=== PATIENT | female | born 1940 | race Caucasian/White ===

== ENCOUNTER 2017-11-20 06:12 | Emergency (ER) | payer MEDICARE, OTHER ==
[~2017-11-20] VITALS: Ht 160 cm; Wt 69.0 kg
[~2017-11-20 06:12] MED LIST: LATA.005SO BOTHEYES; Norco 5-325 Ta1 EACH PO; OMEP20ER PO
[2017-11-20] MEDS ORDERED: ASPI81CH PO (06:25)
[2017-11-20] MEDS ORDERED: DEXL60CA3 PO (06:25)
[2017-11-20] MEDS ORDERED: Prednisone20 MG PO (06:36)
[2017-11-20] MEDS ORDERED: Pseudoephedrine30 MG PO (06:36)
[2017-11-20] MEDS ORDERED: PROMETH-CODEIN 65 ML PO (06:36)
== END 2017-11-20 06:45 | disposition home or self-care (01) ==
LOC: ER 06:12
DX: J20.9 Acute bronchitis, unspecified (principal); Z85.3 Personal history of malignant neoplasm of breast; Z88.2 Allergy status to sulfonamides; Z88.7 Allergy status to serum and vaccine; Z79.82 Long term (current) use of aspirin; Z79.899 Other long term (current) drug therapy
CPT/HCPCS: 99283

== ENCOUNTER 2020-01-23 12:13 | Emergency (ER) | payer MEDICARE, OTHER ==
[~2020-01-23] VITALS: Ht 160 cm; Wt 70.3 kg
[~2020-01-23 12:13] MED LIST changes: +ANAS1 PO; +ASPI81CH PO; +DEXL60CA3 PO; +PROMETH-CODEIN 65 ML PO; +Prednisone20 MG PO; +Pseudoephedrine30 MG PO; +Robaxin500 MG PO
[2020-01-23 13:45] LABS: BASOPHILS ABSOLUTE AUTO 0.03 K/mm3 (0.00-0.23); BASOPHILS PERCENT AUTO 1 % (0-2); EOSINOPHILS ABSOLUTE AUTO 0.18 K/mm3 (0.00-0.68); EOSINOPHILS PERCENT AUTO 3 % (0-6); Hematocrit 48.3 % (33.0-51.0); Hemoglobin 15.5 g/dL (11.5-16.0); IMMATURE GRAN ABSOLUTE AUTO 0.01 K/mm3 (0.00-0.10); IMMATURE GRAN PERCENT AUTO 0 % (0-1); LYMPHOCYTES ABSOLUTE AUTO 1.83 K/mm3 (0.84-5.20); LYMPHOCYTES PERCENT AUTO 33 % (21-46); MONOCYTES ABSOLUTE AUTO 0.65 K/mm3 (0.16-1.47); MONOCYTES PERCENT AUTO 12 % (4-13); Mean Corpuscular HGB 29.1 pg (26.0-34.0); Mean Corpuscular HGB Conc 32.1 g/dL (31.5-36.5); Mean Corpuscular Volume 91 fL (80-100); Mean Platelet Volume 9.6 fL (9.1-12.4); NEUTROPHILS ABSOLUTE AUTO 2.87 K/mm3 (1.96-9.15); NEUTROPHILS PERCENT AUTO 52 % (41-73); Platelet Count 257 K/mm3 (150-400); RDW Coefficient Variation 12.4 % (11.7-14.2); RDW Standard Deviation 41.2 fL (35.1-46.3); Red Blood Cell Count 5.33 M/mm3 (3.80-5.20); White Blood Cell Count 5.57 K/mm3 (4.00-11.30)
[2020-01-23 14:00] LABS: International Normalized Ratio 1.04; Prothrombin Time Results 11.1 Sec (9.7-11.5)
[2020-01-23 14:16] LABS: Alanine Aminotransfer (ALT/SGP 19 U/L (12-78); Alk Phos 87 U/L (50-136); Anion Gap 6 mmol/L (6-16); Aspartate Aminotrans (AST/SGOT 15 U/L (12-37); Bilirubin, Total 0.8 mg/dL (0.1-1.0); Blood Urea Nitrogen 17 mg/dL (8-24); Bun/Creatinine Ratio 23.2 (12.0-20.0); CO2, Blood 29 mmol/L (21-32); Calcium, Blood 9.4 mg/dL (8.5-10.1); Chloride, Blood 105 mmol/L (98-108); Creatinine, Blood 0.73 mg/dL (0.40-1.00); Globulin, Blood 4.2 g/dL (2.2-4.0); Glomerular Filtration Rate >60 (60-); Glucose, Blood 87 mg/dL (70-99); Potassium, Blood 3.9 mmol/L (3.5-5.5); Sodium, Blood 140 mmol/L (136-145); Total Protein, Blood 8.2 g/dL (6.4-8.2); Troponin I <0.015 ng/mL (0.000-0.040)
[2020-01-23] MEDS ORDERED: DEXA4 PO (14:23)
== END 2020-01-23 16:36 | disposition home or self-care (01) ==
LOC: ER 12:13
PROVIDERS: Physician Assistant
DX: G93.89 Other specified disorders of brain (principal); H40.9 Unspecified glaucoma; Z85.3 Personal history of malignant neoplasm of breast; Z88.2 Allergy status to sulfonamides; Z88.7 Allergy status to serum and vaccine; Z79.899 Other long term (current) drug therapy
CPT/HCPCS: 36415; 70450; 71260; 80053; 83880; 84484; 85025; 85379; 85610; 93005; 93010; 99285-25; J1100; Q9967

== ENCOUNTER 2020-02-19 07:14 | Emergency (ER) | payer MEDICARE, OTHER ==
[~2020-02-19] VITALS: Ht 160 cm; Wt 63.5 kg
[~2020-02-19 07:14] MED LIST changes: +DEXA4 PO
[2020-02-19 07:56] LABS: BASOPHILS ABSOLUTE AUTO 0.02 K/mm3 (0.00-0.23); BASOPHILS PERCENT AUTO 0 % (0-2); EOSINOPHILS PERCENT AUTO 0 % (0-6); Hematocrit 36.8 % (33.0-51.0); Hemoglobin 12.3 g/dL (11.5-16.0); IMMATURE GRAN ABSOLUTE AUTO 0.26 K/mm3 (0.00-0.10); IMMATURE GRAN PERCENT AUTO 2 % (0-1); LYMPHOCYTES ABSOLUTE AUTO 0.85 K/mm3 (0.84-5.20); LYMPHOCYTES PERCENT AUTO 8 % (21-46); MONOCYTES ABSOLUTE AUTO 1.04 K/mm3 (0.16-1.47); MONOCYTES PERCENT AUTO 9 % (4-13); Mean Corpuscular HGB 30.1 pg (26.0-34.0); Mean Corpuscular HGB Conc 33.4 g/dL (31.5-36.5); Mean Corpuscular Volume 90 fL (80-100); Mean Platelet Volume 9.9 fL (9.1-12.4); NEUTROPHILS PERCENT AUTO 81 % (41-73); Platelet Count 171 K/mm3 (150-400); RDW Standard Deviation 42.7 fL (35.1-46.3); Red Blood Cell Count 4.09 M/mm3 (3.80-5.20); White Blood Cell Count 11.17 K/mm3 (4.00-11.30)
[2020-02-19 08:10] LABS: Alanine Aminotransfer (ALT/SGP 25 U/L (12-78); Albumin, Blood 2.4 g/dL (3.4-5.0); Albumin/Globulin Ratio 0.8 (0.8-1.8); Alk Phos 43 U/L (50-136); Anion Gap 7 mmol/L (6-16); Aspartate Aminotrans (AST/SGOT 11 U/L (12-37); Bilirubin, Total 0.4 mg/dL (0.1-1.0); Blood Urea Nitrogen 63 mg/dL (8-24); Bun/Creatinine Ratio 103.3 (12.0-20.0); CO2, Blood 26 mmol/L (21-32); Calcium, Blood 7.8 mg/dL (8.5-10.1); Chloride, Blood 104 mmol/L (98-108); Creatinine, Blood 0.61 mg/dL (0.40-1.00); Globulin, Blood 3.2 g/dL (2.2-4.0); Glomerular Filtration Rate >60 (60-); Glucose, Blood 182 mg/dL (70-99); Potassium, Blood 4.1 mmol/L (3.5-5.5); Sodium, Blood 137 mmol/L (136-145); Total Protein, Blood 5.6 g/dL (6.4-8.2); Troponin I <0.015 ng/mL (0.000-0.040)
[2020-02-19 09:49] LABS: Source, Urine Clean Catch
[2020-02-19 10:02] LABS: Bilirubin, Urine Neg (Neg); Blood, Urine 5+ (Neg); Glucose Qualitative, Urine 1+ (Neg); Ketones, Urine 1+ (Neg); Leukocyte Esterase, Urine 3+ (Neg); Nitrite, Urine Neg (Neg); Protein, Urine Neg (Neg); Urobilinogen, Urine NORM (Normal)
[2020-02-19 10:13] LABS: Appearance, Urine Clear (Clear); Color, Urine Yellow (P-Yellow)
[2020-02-19 10:16] LABS: Calcium Oxalate Crystals Rare /hpf; Granular Casts 0-2 /lpf (0); Mucus Light (0-Heavy); Squamous Epithelial Cells Few /hpf (Few)
[2020-02-19 10:17] LABS: Bacteria Mod /hpf
[2020-02-19] MEDS ORDERED: CEPH500 PO (12:20)
== END 2020-02-19 13:24 | disposition home or self-care (01) ==
LOC: ER 07:14
PROVIDERS: Emergency Medicine
DX: N39.0 Urinary tract infection, site not specified (principal); E86.0 Dehydration; C71.9 Malignant neoplasm of brain, unspecified; Z85.3 Personal history of malignant neoplasm of breast; Z88.2 Allergy status to sulfonamides; Z88.7 Allergy status to serum and vaccine; Z79.899 Other long term (current) drug therapy
CPT/HCPCS: 80053; 81001; 84484; 85025; 87077; 87086; 87186; 93005; 93010; 96361; 96365; 99284-25; J0696; J7120

== ENCOUNTER 2020-03-06 12:21 | Inpatient (IN) | payer MEDICARE, OTHER ==
[~2020-03-06] VITALS: Ht 160 cm; Wt 61.2 kg
[~2020-03-06 12:21] MED LIST changes: +CEPH500 PO
[2020-03-06] MEDS ORDERED: DEXA4 PO (12:55)
[2020-03-06] MEDS ORDERED: LATA.005SO BOTHEYES (12:55)
[2020-03-06] MEDS ORDERED: Aspirin EC81 MG PO (12:56)
[2020-03-06] MEDS ORDERED: ANASTROZOLE5 GM MC (12:56)
[2020-03-06] MEDS ORDERED: CALCIUM600 MG PO (12:57)
[2020-03-06] MEDS ORDERED: DICL25ER PO (12:58)
[2020-03-06] MEDS ORDERED: [UNRECOGNIZED DRUG - OTHER] PO (12:58)
[2020-03-06] MEDS ORDERED: ANAS1 PO (12:59)
[2020-03-06 13:04] LABS: BASOPHILS ABSOLUTE AUTO 0.01 K/mm3 (0.00-0.23); BASOPHILS PERCENT AUTO 0 % (0-2); EOSINOPHILS PERCENT AUTO 0 % (0-6); Hematocrit 29.6 % (33.0-51.0); Hemoglobin 9.4 g/dL (11.5-16.0); IMMATURE GRAN ABSOLUTE AUTO 0.13 K/mm3 (0.00-0.10); IMMATURE GRAN PERCENT AUTO 2 % (0-1); LYMPHOCYTES ABSOLUTE AUTO 0.55 K/mm3 (0.84-5.20); LYMPHOCYTES PERCENT AUTO 8 % (21-46); MONOCYTES ABSOLUTE AUTO 0.42 K/mm3 (0.16-1.47); MONOCYTES PERCENT AUTO 6 % (4-13); Mean Corpuscular HGB 31.1 pg (26.0-34.0); Mean Corpuscular HGB Conc 31.8 g/dL (31.5-36.5); Mean Corpuscular Volume 98 fL (80-100); Mean Platelet Volume 10.1 fL (9.1-12.4); NEUTROPHILS ABSOLUTE AUTO 5.69 K/mm3 (1.96-9.15); NEUTROPHILS PERCENT AUTO 84 % (41-73); NRBC ABSOLUTE 0.05 K/mm3 (0.00-0.02); NRBC Auto 0.7 /100 WBC (0.0-0.2); Platelet Count 75 K/mm3 (150-400); RDW Coefficient Variation 17.7 % (11.7-14.2); RDW Standard Deviation 62.1 fL (35.1-46.3); Red Blood Cell Count 3.02 M/mm3 (3.80-5.20)
[2020-03-06 13:15] LABS: Alanine Aminotransfer (ALT/SGP 30 U/L (12-78); Albumin, Blood 2.1 g/dL (3.4-5.0); Albumin/Globulin Ratio 0.8 (0.8-1.8); Alk Phos 49 U/L (50-136); Anion Gap 5 mmol/L (6-16); Aspartate Aminotrans (AST/SGOT 12 U/L (12-37); Bilirubin, Total 1.1 mg/dL (0.1-1.0); Blood Urea Nitrogen 30 mg/dL (8-24); Bun/Creatinine Ratio 53.6 (12.0-20.0); CO2, Blood 27 mmol/L (21-32); Calcium, Blood 7.4 mg/dL (8.5-10.1); Chloride, Blood 109 mmol/L (98-108); Creatinine, Blood 0.56 mg/dL (0.40-1.00); Globulin, Blood 2.6 g/dL (2.2-4.0); Glomerular Filtration Rate >60 (60-); Glucose, Blood 199 mg/dL (70-99); Potassium, Blood 3.5 mmol/L (3.5-5.5); Sodium, Blood 141 mmol/L (136-145); Total Protein, Blood 4.7 g/dL (6.4-8.2)
[2020-03-06 17:59] LABS: International Normalized Ratio 1.01; Prothrombin Time Results 10.8 Sec (9.7-11.5)
[2020-03-06] MEDS ORDERED: DEXL60CA3 PO (18:03)
[2020-03-06] MEDS ORDERED: Vitamin D2000 UNIT PO (18:05)
[2020-03-06] MEDS ORDERED: DICLOFENAC SOD100 G1 TOP (18:05)
[2020-03-06] MEDS ORDERED: B Complex-Foli1 EACH PO (18:06)
[2020-03-06] MEDS ORDERED: DICL25ER (18:14)
[2020-03-06 18:45] LABS: Hematocrit 27.9 % (33.0-51.0); Hemoglobin 8.7 g/dL (11.5-16.0)
[2020-03-06 22:08] LABS: Hematocrit 29.5 % (33.0-51.0); Hemoglobin 9.5 g/dL (11.5-16.0)
[2020-03-07 02:18] LABS: BASOPHILS ABSOLUTE AUTO 0.01 K/mm3 (0.00-0.23); BASOPHILS PERCENT AUTO 0 % (0-2); EOSINOPHILS ABSOLUTE AUTO 0.04 K/mm3 (0.00-0.68); EOSINOPHILS PERCENT AUTO 1 % (0-6); Hematocrit 28.9 % (33.0-51.0); Hemoglobin 9.1 g/dL (11.5-16.0); IMMATURE GRAN ABSOLUTE AUTO 0.12 K/mm3 (0.00-0.10); IMMATURE GRAN PERCENT AUTO 2 % (0-1); LYMPHOCYTES ABSOLUTE AUTO 0.45 K/mm3 (0.84-5.20); LYMPHOCYTES PERCENT AUTO 7 % (21-46); MONOCYTES ABSOLUTE AUTO 0.26 K/mm3 (0.16-1.47); MONOCYTES PERCENT AUTO 4 % (4-13); Mean Corpuscular HGB 30.5 pg (26.0-34.0); Mean Corpuscular HGB Conc 31.5 g/dL (31.5-36.5); Mean Corpuscular Volume 97 fL (80-100); Mean Platelet Volume 9.4 fL (9.1-12.4); NEUTROPHILS ABSOLUTE AUTO 5.36 K/mm3 (1.96-9.15); NEUTROPHILS PERCENT AUTO 86 % (41-73); NRBC ABSOLUTE 0.03 K/mm3 (0.00-0.02); NRBC Auto 0.5 /100 WBC (0.0-0.2); Platelet Count 74 K/mm3 (150-400); RDW Coefficient Variation 17.9 % (11.7-14.2); RDW Standard Deviation 62.5 fL (35.1-46.3); Red Blood Cell Count 2.98 M/mm3 (3.80-5.20); White Blood Cell Count 6.24 K/mm3 (4.00-11.30)
[2020-03-07 02:33] LABS: Anion Gap 6 mmol/L (6-16); Blood Urea Nitrogen 20 mg/dL (8-24); Bun/Creatinine Ratio 43.1 (12.0-20.0); CO2, Blood 26 mmol/L (21-32); Calcium, Blood 7.4 mg/dL (8.5-10.1); Chloride, Blood 107 mmol/L (98-108); Creatinine, Blood 0.46 mg/dL (0.40-1.00); Glomerular Filtration Rate >60 (60-); Glucose, Blood 87 mg/dL (70-99); Potassium, Blood 4.1 mmol/L (3.5-5.5); Sodium, Blood 139 mmol/L (136-145)
--- NOTE | 2020-03-07 06:37 | NUR ---
PATIENT TURNED EVERY 2-3 HOURS T/O NIGHT. HAS BEEN VOIDING 100CC AT A TIME. BLADDER SCAN SHOWED >737CC. STRAIGHT CATH PER ORDER FOR 900CC OF CLEAR YELLOW URINE. PATIENT HAS NOT HAD ANY STOOLS TONIGHT. H&H HAS BEEN WITHIN A FEW POINTS RANGE OF ADMISSION. WILL GIVE REPORT TO ANTHONY LUCIANO. CALL LIGHT IN REACH.
--- NOTE | 2020-03-07 07:13 | NUR ---
ASSUMED PATIENT CARE. PATIENT RESTING COMFORTABLY IN BED, CONVERSING WITH NURSING STAFF. CALL LIGHT WITHIN REACH. NO SIGNS OF ACUTE DISTRESS, WCTM.
[2020-03-07 12:06] LABS: Hematocrit 32.8 % (33.0-51.0); Hemoglobin 10.6 g/dL (11.5-16.0)
--- NOTE | 2020-03-07 15:54 | NUR ---
History, Chart, Medications and Allergies reviewed before start of procedure. Lungs clear T/O to Auscultation. Patient confirms NPO status and agrees with scheduled surgery. Pre-Op teaching done. Pt verbalizes understanding.
--- NOTE | 2020-03-07 16:02 | NUR ---
03/07/20 1602 Georgia Robbins History, Chart, Medications and Allergies reviewed before start of procedure. Patient confirms NPO status and agrees with scheduled surgery. 3-LEAD EKG REVIEWED WITH PHYSICIAN PRIOR TO START OF PROCEDURE. PATIENT DETERMINED TO BE ASA APPROPRIATE FOR PROPOFOL SEDATION PRIOR TO START OF PROCEDURE BY DR. DOSS. MONITOR INTACT WITH CONTINUOUS PULSE OXIMETRY AND INTERMITTENT BP.
--- NOTE | 2020-03-07 17:29 | NUR ---
PATIENT WAS ABLE TO HAVE SMALL BOWEL MOVEMENT THIS SHIFT. PATIENT EVALUATED BY DR. MANZANO, WENT FOR ENDOSCOPY. BIOPSIES WERE TAKEN, PYLORIC ULCER NOTED LIKELY SOURCE OF SLOW BLEED. VSS THIS SHIFT, PLAN IS TO CONTINUE PATIENT ON PROTONIX.
[2020-03-07 19:15] LABS: Hematocrit 30.2 % (33.0-51.0); Hemoglobin 9.8 g/dL (11.5-16.0)
--- NOTE | 2020-03-07 19:15 | NUR ---
RELINQUISHED PATIENT CARE.
--- NOTE | 2020-03-08 02:37 | NUR ---
Patient up to BR with one person assist, walker, and gait belt. Patient had a small bm with indira red blood in the water of the toilet. unclear where the blood originated. patient has the coccxy wound that has cream and pink tinged exudate. area around anus is also excoriated. there was no blood seen on the pullups. will continue to monitor. call light in reach.
[2020-03-08 03:28] LABS: BASOPHILS ABSOLUTE AUTO 0.01 K/mm3 (0.00-0.23); BASOPHILS PERCENT AUTO 0 % (0-2); EOSINOPHILS ABSOLUTE AUTO 0.01 K/mm3 (0.00-0.68); EOSINOPHILS PERCENT AUTO 0 % (0-6); Hematocrit 29.3 % (33.0-51.0); Hemoglobin 9.3 g/dL (11.5-16.0); IMMATURE GRAN ABSOLUTE AUTO 0.09 K/mm3 (0.00-0.10); IMMATURE GRAN PERCENT AUTO 2 % (0-1); LYMPHOCYTES ABSOLUTE AUTO 0.29 K/mm3 (0.84-5.20); LYMPHOCYTES PERCENT AUTO 5 % (21-46); MONOCYTES ABSOLUTE AUTO 0.31 K/mm3 (0.16-1.47); MONOCYTES PERCENT AUTO 5 % (4-13); Mean Corpuscular HGB 30.6 pg (26.0-34.0); Mean Corpuscular HGB Conc 31.7 g/dL (31.5-36.5); Mean Corpuscular Volume 96 fL (80-100); Mean Platelet Volume 9.5 fL (9.1-12.4); NEUTROPHILS ABSOLUTE AUTO 5.17 K/mm3 (1.96-9.15); NEUTROPHILS PERCENT AUTO 88 % (41-73); NRBC ABSOLUTE 0.02 K/mm3 (0.00-0.02); NRBC Auto 0.3 /100 WBC (0.0-0.2); Platelet Count 79 K/mm3 (150-400); RDW Coefficient Variation 17.5 % (11.7-14.2); RDW Standard Deviation 60.9 fL (35.1-46.3); Red Blood Cell Count 3.04 M/mm3 (3.80-5.20); White Blood Cell Count 5.88 K/mm3 (4.00-11.30)
[2020-03-08 03:43] LABS: Alanine Aminotransfer (ALT/SGP 31 U/L (12-78); Albumin, Blood 2.1 g/dL (3.4-5.0); Albumin/Globulin Ratio 0.8 (0.8-1.8); Alk Phos 48 U/L (50-136); Anion Gap 7 mmol/L (6-16); Aspartate Aminotrans (AST/SGOT 14 U/L (12-37); Bilirubin, Total 0.6 mg/dL (0.1-1.0); Blood Urea Nitrogen 16 mg/dL (8-24); Bun/Creatinine Ratio 31.9 (12.0-20.0); CO2, Blood 26 mmol/L (21-32); Calcium, Blood 7.6 mg/dL (8.5-10.1); Chloride, Blood 107 mmol/L (98-108); Globulin, Blood 2.7 g/dL (2.2-4.0); Glomerular Filtration Rate >60 (60-); Glucose, Blood 203 mg/dL (70-99); Magnesium, Blood 2.2 mg/dL (1.6-2.4); Sodium, Blood 140 mmol/L (136-145); Total Protein, Blood 4.8 g/dL (6.4-8.2)
--- NOTE | 2020-03-08 05:58 | NUR ---
Patient able to turn self in bed to position of comfort. she has been able to use the walker and minimal assistance to get to BR. no further bleeding. call light in reach.
[2020-03-08] MEDS ORDERED: FERSU300 PO (11:02)
[2020-03-08] MEDS ORDERED: PANT40 PO (11:03)
[2020-03-08] MEDS ORDERED: ASCO500 PO (11:03)
[2020-03-08 11:08] LABS: Hematocrit 30.8 % (33.0-51.0); Hemoglobin 9.9 g/dL (11.5-16.0)
--- NOTE | 2020-03-08 11:19 | NUR ---
PT DC HOME WITH SON AND . ALL MEDS AND INSTRUCTIONS WERE REVIEWED WITH THE PT AND HER SON WHO IS HER PRIMARY CAREGIVER. MED REC WAS FAXED TO [facility] PER PT REQUEST. IVS REMOVED WITH NO ISSUE. ALL PERSONAL BELONGINGS PACKED WITH THE PT. SON IS HERE TO PICK HER UP.
== END 2020-03-08 11:28 | disposition home or self-care (01) | DRG 378 ==
LOC: ER 12:21 → SURS 17:56
PROVIDERS: Emergency Medicine; Internal Medicine Gastroenterology; Nurse Practitioner Acute Care; Student in an Organized Health Care Education/Training Program; ADMIT Internal Medicine
PROC: 0DB68ZX Excision of Stomach, Via Natural or Artificial Opening Endoscopic, Diagnostic (ICD-10-PCS; principal; 2020-03-07 14:15)
DX: K25.4 Chronic or unspecified gastric ulcer with hemorrhage (principal); C71.9 Malignant neoplasm of brain, unspecified; D62 Acute posthemorrhagic anemia; C83.39 Diffuse large B-cell lymphoma, extranodal and solid organ sites; B37.81 Candidal esophagitis; Z99.3 Dependence on wheelchair; Z79.82 Long term (current) use of aspirin; H40.9 Unspecified glaucoma; Z90.11 Acquired absence of right breast and nipple; K21.9 Gastro-esophageal reflux disease without esophagitis; E78.5 Hyperlipidemia, unspecified; D69.6 Thrombocytopenia, unspecified; H44.9 Unspecified disorder of globe
CPT/HCPCS: 36415; 74177; 80048; 80053; 82272; 83735; 85014; 85018; 85025; 85610; 85730; 86850; 86900; 86901; 93005; 93010; 96361-59; 96374-59; 97116; 97162; 99285-25; C9113; G0378; J2704; J3480; J7120; Q9967; U0002